=== PATIENT | female | born 1965 | race Asian ===

== ENCOUNTER 2020-05-05 16:38 | Inpatient (IN) | payer OTHER, SELFPAY ==
[~2020-05-05] VITALS: Ht 149.9 cm; Wt 74.4 kg
[2020-05-05 16:48] VITALS: BP 176/86
--- NOTE | 2020-05-05 16:56 | NUR ---
Donell-- pts . Call for updates [phone]
--- NOTE | 2020-05-05 16:56 | NUR ---
Patient wheelchair assisted to bed 09
[2020-05-05] MEDS ORDERED: AZITHROMYCIN 500 MG in DEXTROSE 5% 250 ML IV ONE (17:50)
[2020-05-05] MEDS ORDERED: DEXAMETHASONE 10 MG/ML VIAL IVP ONE (17:50)
[2020-05-05 17:56] LABS: BASOPHILS % (AUTO) 0.2 % (0.0-2.0); EOSINOPHILS % (AUTO) 0.1 % (0.0-4.0); HEMATOCRIT 41.7 % (36-48); HEMOGLOBIN 13.9 g/dL (12.0-16.0); LYMPHOCYTES # (AUTO) 0.6 K/uL (2.5-16.5); LYMPHOCYTES % (AUTO) 7.3 % (20.5-51.1); MEAN CORPUSCULAR HEMOGLOBIN 26 pg (27-31); MEAN CORPUSCULAR HGB CONC 33 g/dL (33-37); MEAN CORPUSCULAR VOLUME 78.1 fL (80-94); MONOCYTES # (AUTO) 0.6 K/uL (0.8-1.0); MONOCYTES % (AUTO) 7.5 % (1.7-9.3); NEUTROPHILS # (AUTO) 7.2 K/uL (1.8-7.7); NEUTROPHILS % (AUTO) 84.9 % (42.2-75.2); PLATELET COUNT (AUTO) 279 K/uL (140-450); RED BLOOD CELL COUNT(AUTO) 5.35 MIL/uL (4.20-5.40); RED CELL DISTRIBUTION WIDTH 14.2 % (11.6-13.7); WHITE BLOOD COUNT (AUTO) 8.5 K/uL (4.8-10.8)
[2020-05-05 18:17] LABS: PROTHROMBIN TIME 9.5 secs (10.8-13.4)
[2020-05-05 18:19] LABS: ALBUMIN 3.4 g/dL (3.4-5.0); ANION GAP 10.2 (8-16); CARBON DIOXIDE 30.1 mmol/L (21-32); CREATININE 0.7 mg/dL (0.6-1.3); POTASSIUM 3.3 mmol/L (3.5-5.1); TOTAL BILIRUBIN 0.3 mg/dL (0.0-1.0)
[2020-05-05 19:03] LABS: C-REACTIVE PROTEIN QUANT 3.5 mg/dL (0.0-0.9)
[2020-05-05 19:08] LABS: LACTATE DEHYDROGENASE 302 U/L (81-234)
--- NOTE | 2020-05-05 19:25 | NUR ---
PATIENT GIVEN BEDSIDE COMODE TO PROVIDE UA.
--- NOTE | 2020-05-05 19:30 | NUR ---
PT 55 Y/O FEMALE BIB SELF FROM HOME FOR C/O SOB AND COUGH X 1 WEEK. PT A &O X 4. PER PATIENT, "I GOT EXPOSED TO BY MY COUSIN 2 WEEKS AGO AND WE LATER FOUND OUT HE WAS POSITIVE." PT RESPIRATIONS ARE EVEN AND UNLABORED. CRACKLES NOTED A/P BIALT. O2SAT INCREASED TO 94% ON 2L NC. PT SKIN IS WARM AND DRY TO TOUCH. PT REMAINS ON ACCOUNTS PAYABLE PROCESSOR. DENIES PAIN AT THIS TIME. PT ADMITS TO HTN HX BUT DOES NOT TAKE MEDICATION FOR HTN. MEDHX: ASTHMA, HTN. ALLERGIES: NKA
[2020-05-05] MEDS ORDERED: cefTRIAXone 1,000 MG VIAL ONE (20:22)
[2020-05-05] MEDS ORDERED: DEXAMETHASONE 10 MG/ML VIAL ONE (20:23)
[2020-05-05] MEDS ORDERED: HYDROcodone/APAP 5/325 MG 1 TAB TAB PO PRN (20:40)
[2020-05-05] MEDS: AZITHROMYCIN 500 MG in DEXTROSE 5% 250 ML IV SCH (20:40)
[2020-05-05] MEDS ORDERED: ACETAMINOPHEN 325 MG TAB PO PRN (20:40)
[2020-05-05] MEDS ORDERED: ZOLPIDEM 5 MG TAB PO PRN (20:40)
[2020-05-05] MEDS ORDERED: METOCLOPRAMIDE 10 MG/2 ML INJ VIAL IVP PRN (20:40)
[2020-05-05] MEDS ORDERED: AZITHROMYCIN 500 MG INJ VIAL IV ONE (22:11)
--- NOTE | 2020-05-05 23:00 | NUR ---
PT RESPONSIVE TO VERBAL STIMULI. PT RESTING IN BED COMFORTABLLY, AND STATES ALL NEEDS MET AT THIS TIME. BEDSIDE COMODE LEFT AT BEDSIDE. PT REMAINS ON PRINCIPAL TRAINER. PT VSS. PT O2SAT@ 93% ON 2L NC. PT DENIES ANY CHEST PAIN OR SOB AT THIS TIME. BED IS LOCKED AND IN LOWEST POSITION.
[2020-05-06 00:12] LABS: APPEARANCE,URINE CLEAR (CLEAR); BILIRUBIN,URINE NEGATIVE (NEGATIVE); BLOOD, URINE NEGATIVE (NEGATIVE); COLOR,URINE YELLOW (YELLOW); LEUKOCYTE ESTERASE ,URINE NEGATIVE (NEGATIVE); NITRITE, URINE NEGATIVE (NEGATIVE); UGLUCOSE NEGATIVE (NEGATIVE)
[2020-05-06] MEDS: ALBUTEROL SULFATE/IPRATROPIU 3 ML SOL IH SCH ×4 (01:00→19:00)
--- NOTE | 2020-05-06 03:00 | NUR ---
PT RESPONSIVE TO VERBAL STIMULI. PT GIVEN BLACKET FOR COMFORT MEASURES. BEDSIDE COMODE LEFT AT BEDSIDE AND PATIENT ASSISTED TO BEDSIDE COMODE TO URINATE. PT REMAINS ON NURSING SCHEDULER. PT VSS. PT O2SAT@ 96% ON 2L NC. PT DENIES ANY CHEST PAIN OR SOB AT THIS TIME. BED IS LOCKED AND IN LOWEST POSITION. SIDERAIL UP X 1 FOR SAFETY.
--- NOTE | 2020-05-06 05:00 | NUR ---
[facility] SWAB COLLECTED AND SENT TO LAB.
--- NOTE | 2020-05-06 05:29 | NUR ---
PAIENT GIVEN PILLOW FOR COMFORT MEASURES. PT GIVEN EXRTA BLANKET FOR COMFORT MEASURES. PT GIVEN WATER FOR COMFROT MEASURES. PT RESTING IN BED WITH INDUSTRIAL RELATIONS REPRESENTATIVE IN PLACE. PT ABLE TO REPOSITION SELF. PT DENIES ANY PAIN OR CHEST DISCOMFORT AT THIS TIME. NO SOB NOTED AT THIS TIME. PT REMAINS ON INDUSTRIAL RELATIONS REPRESENTATIVE. VSS AT TIME TIME.
--- NOTE | 2020-05-06 06:09 | NUR ---
PATIENT GIVEN FOOD TOLERATED AND WATER. PT RESTING IN BED WITH EYES OPEN AND RESPOSNSIVE TO VERBAL STIMULI. PT REMAINS ON IRRIGATION SYSTEM INSTALLER AND ALL VSS. PT DENIES PAIN AT THIS TIME. BED IS LOCKED AND IN LOEST POSITON.
[2020-05-06] MEDS ORDERED: MONT10TA35 PO (06:10)
[2020-05-06] MEDS ORDERED: SUD30 PO (06:10)
[2020-05-06] MEDS: BUDESONIDE 0.5 MG/2 ML NEBU INH SCH (07:34)
--- NOTE | 2020-05-06 07:55 | NUR ---
PT IS RESTING IN BED AT THIS TIME, VSS, RESP EVEN AND UNLABORED, ALL NEEDS MET AT THIS TIME
[2020-05-06 08:22] LABS: BASOPHILS % (AUTO) 0.4 % (0.0-2.0); HEMATOCRIT 41.7 % (36-48); HEMOGLOBIN 13.9 g/dL (12.0-16.0); LYMPHOCYTES # (AUTO) 1.3 K/uL (2.5-16.5); LYMPHOCYTES % (AUTO) 30.1 % (20.5-51.1); MEAN CORPUSCULAR HEMOGLOBIN 26 pg (27-31); MEAN CORPUSCULAR HGB CONC 33 g/dL (33-37); MEAN CORPUSCULAR VOLUME 78.2 fL (80-94); MONOCYTES # (AUTO) 0.3 K/uL (0.8-1.0); MONOCYTES % (AUTO) 7.4 % (1.7-9.3); NEUTROPHILS # (AUTO) 2.6 K/uL (1.8-7.7); NEUTROPHILS % (AUTO) 62.1 % (42.2-75.2); PLATELET COUNT (AUTO) 280 K/uL (140-450); RED BLOOD CELL COUNT(AUTO) 5.33 MIL/uL (4.20-5.40); RED CELL DISTRIBUTION WIDTH 14.1 % (11.6-13.7); WHITE BLOOD COUNT (AUTO) 4.2 K/uL (4.8-10.8)
[2020-05-06 08:46] LABS: ALBUMIN 3.4 g/dL (3.4-5.0); ANION GAP 14.6 (8-16); CARBON DIOXIDE 27.2 mmol/L (21-32); CHOL/HDL RATIO 4.4 (1-4.5); CREATININE 0.7 mg/dL (0.6-1.3); POTASSIUM 3.8 mmol/L (3.5-5.1); TOTAL BILIRUBIN 0.3 mg/dL (0.0-1.0)
[2020-05-06] MEDS ORDERED: DEXAMETHASONE 4 MG/ML VIAL IVP ONE (09:00)
--- NOTE | 2020-05-06 11:29 | NUR ---
MRSA SWAB COLLECTED AT THIS TIME
--- NOTE | 2020-05-06 12:07 | NUR ---
Patient will be admitted to care of MEGH[facility]. Admited to MED SURG. Will go to room 117. Belongings list completed. Report to DESHAWN TAVAREZ.
[2020-05-06 12:10] VITALS: BP 146/77
--- NOTE | 2020-05-06 12:10 | NUR ---
RECEIVED PATIENT FROM ED NURSE, DAYSI PARR. PATIENT AWAKE, ALERT AND ORIENTED X4. RESP EVEN AND UNLABORED ON NONREBREATHER 10L, O2SAT 95%. DENIED OF PAIN AT THIS TIME. LUNGS CLEAR. SKIN WARM TO TOUCH AND INTACT. MRSA COLLECTED IN ED. DROPLET PRECAUTION OBSERVED. LAC 20G INTACT AND PATENT. PATIENT ABLE TO MAKE NEEDS KNOWN AND FOLLOW COMMANDS. NO ACUTE S/S DISTRESS AT THIS TIME. CALL LIGHT WITHIN REACH. WILL CONTINUE TO MONITOR.
--- NOTE | 2020-05-06 14:25 | NUR ---
PATIENT SITTING UP IN BED COMFORTABLE USING HER CELL PHONE. RESP EVEN AND UNLABORED ON 15L NONREBREATHER. DENIED OF PAIN AND NO ACUTE S/S DISTRESS. PERSONAL CARE RENDERED. PATIENT AMBULATED TO THE BATHROOM WITH STANDBY ASSIST, WITH STEADY SLOW GAIT. PATIENT STATED SHE WAS FEELING DIZZY EARLIER TODAY WHEN AMBULATING. FALL PRECAUTION PUT IN PLACE. PATIENT ENCOURAGED TO USE CALL LIGHT WHEN NEED TO GET OUT OF BED. PATIENT VERBALIZED UNDERSTANDING. CALL LIGHT WITHIN REACH. WILL CONTINUE TO MONITOR.
[2020-05-06 16:00] VITALS: BP 156/88
--- NOTE | 2020-05-06 16:35 | NUR ---
PATIENT AMBULATED TO THE BATHROOM WITH SLOW STEADY GAIT WITH STANDBY ASSIST. C/O SOB DURING AMBULATION BUT O2SAT MAINTAINED 93%. PATIENT DENIED PAIN AT THIS TIME. ALERT AND AWAKE. ABLE TO MAKE NEEDS KNOWN. CALL LIGHT WITHIN REACH. WILL CONTINUE TO MONITOR.
[2020-05-06] MEDS ORDERED: remdesivir COMMUNICATION ORDER 1 EA MISC MC PRN (17:05)
[2020-05-06] MEDS ORDERED: MONTELUKAST SODIUM 10 MG TAB PO SCH (17:15)
[2020-05-06 17:34] LABS: ALBUMIN 3.6 g/dL (3.4-5.0); BILIRUBIN,DIRECT 0.1 mg/dL (0.0-0.3); TOTAL BILIRUBIN 0.4 mg/dL (0.0-1.0)
--- NOTE | 2020-05-06 18:35 | NUR ---
ASSISTED PATIENT GETTING OUT OF BED AND AMBULATING TO THE BATHROOM. PATIENT TOLERATED WELL. DENIED OF PAIN. CALL LIGHT WITHIN REACH. WILL CONTINUE TO MONITOR.
--- NOTE | 2020-05-06 19:35 | NUR ---
ENDORSED PATIENT TO NIGHT NURSE. PATIENT IN STABLE CONDITION.
--- NOTE | 2020-05-06 20:10 | NUR ---
RECEIVED REPORT OF PT IN STABLE CONDITION.RESP.UNLABOLED W/O2 VIA NRB MASK.SL PATENT.LUNGS DIMINISHED.CALL LIGHT IN REACH.WILL MONITOR CLOSELY.
[2020-05-06] MEDS ORDERED: cefTRIAXone 1,000 MG VIAL ONE (20:26)
[2020-05-06] MEDS ORDERED: AZITHROMYCIN 500 MG INJ VIAL IV ONE (20:27)
[2020-05-06] MEDS: AZITHROMYCIN 500 MG in DEXTROSE 5% 250 ML IV SCH (21:52)
[2020-05-07] VITALS: BP 168/77
--- NOTE | 2020-05-07 | NUR ---
FREQUENT ROUND DONE.NO DISTRESS NOTED.
--- NOTE | 2020-05-07 06:27 | NUR ---
ASSISST TO GO TO BR.HAS GEN.WEAKNESS.NO PRES.DISTRESS NOTED.
--- NOTE | 2020-05-07 07:20 | NUR ---
PATIENT HAS BEEN SCREENED AND CATEGORIZED MODERATE NUTRITION RISK. PATIENT WILL BE SEEN WITHIN 3-5 DAYS OF ADMISSION. 05/08/20-05/10/20 HARLEY WEINER MS, RDN
--- NOTE | 2020-05-07 07:30 | NUR ---
RECEIVED REPORT FROM NIGHT NURSE PATIENT IS AAOX4 ON 10LPM NON REBREATHER MASK, ON REGULAR DIET, SKIN INTACT, AMBULATORY BUT WITH DIZZINESS, IV INTACT AND PATENT ON LEFT AC SALINE LOCK. CONSENT FOR PLASMA TAKEN. SAFETY MEASURES IN PLACE AND CALL LIGHT WITHIN REACH. WILL CONTINUE TO MONITOR.
[2020-05-07 08:00] VITALS: BP 155/85
[2020-05-07] MEDS: MONTELUKAST SODIUM 10 MG TAB PO SCH (08:27)
[2020-05-07] MEDS: DEXAMETHASONE 4 MG/ML VIAL IM SCH (08:28)
--- NOTE | 2020-05-07 08:34 | NUR ---
MEDICATION DUE GIVEN AND CHECK PATIENTS VITAL SIGNS PRIOR TO MEDICATION. BP 155/85 [place] 64.
[2020-05-07] MEDS ORDERED: remdesivir COMMUNICATION ORDER 1 EA MISC MC PRN (09:00)
[2020-05-07 09:40] LABS: BASOPHILS % (AUTO) 0.2 % (0.0-2.0); HEMOGLOBIN 13.8 g/dL (12.0-16.0); LYMPHOCYTES # (AUTO) 1.9 K/uL (2.5-16.5); LYMPHOCYTES % (AUTO) 14.1 % (20.5-51.1); MEAN CORPUSCULAR HEMOGLOBIN 26 pg (27-31); MEAN CORPUSCULAR HGB CONC 33 g/dL (33-37); MEAN CORPUSCULAR VOLUME 78.4 fL (80-94); MONOCYTES # (AUTO) 1.2 K/uL (0.8-1.0); MONOCYTES % (AUTO) 8.9 % (1.7-9.3); NEUTROPHILS # (AUTO) 10.1 K/uL (1.8-7.7); NEUTROPHILS % (AUTO) 76.8 % (42.2-75.2); PLATELET COUNT (AUTO) 321 K/uL (140-450); RED BLOOD CELL COUNT(AUTO) 5.35 MIL/uL (4.20-5.40); RED CELL DISTRIBUTION WIDTH 14.2 % (11.6-13.7); WHITE BLOOD COUNT (AUTO) 13.2 K/uL (4.8-10.8)
--- NOTE | 2020-05-07 10:00 | NUR ---
MADE ROUNDS PATIENT IS SITTING NO DISTRESS NOTED
[2020-05-07 10:30] LABS: ALBUMIN 3.1 g/dL (3.4-5.0); ANION GAP 12.6 (8-16); CARBON DIOXIDE 28.7 mmol/L (21-32); CREATININE 0.7 mg/dL (0.6-1.3); POTASSIUM 3.3 mmol/L (3.5-5.1); TOTAL BILIRUBIN 0.4 mg/dL (0.0-1.0)
[2020-05-07 10:33] LABS: ALBUMIN 3.2 g/dL (3.4-5.0); BILIRUBIN,DIRECT 0.1 mg/dL (0.0-0.3); TOTAL BILIRUBIN 0.4 mg/dL (0.0-1.0)
[2020-05-07] MEDS ORDERED: POTASSIUM CHLORIDE 10 MEQ TABER PO SCH (12:00)
--- NOTE | 2020-05-07 12:00 | NUR ---
PATIENT POTASSIUM LEVEL 3.3 GAVE K DUR 40 MEQ PO PER DOCTOR SOPHIA MOORE
[2020-05-07] MEDS ORDERED: remdesivir CLINICAL MONITORING 1 EA MISC MC PRN (14:20)
[2020-05-07 16:00] VITALS: BP 143/80
[2020-05-07] MEDS ORDERED: REMDESIVIR (EUA) 200 MG in NACL 0.9% 100 ML IV SCH (16:00)
--- NOTE | 2020-05-07 16:00 | NUR ---
MEDICATION DUE GIVEN NO DISTRESS NOTED
--- NOTE | 2020-05-07 19:21 | NUR ---
Patient's Plan of Care was discussed and reviewed with MANAGER HOUSEKEEPING: EULOGIO LOYA
--- NOTE | 2020-05-07 19:21 | NUR ---
ENDORSED TO NIGHT NURSE FOR CONTINUITY OF CARE. PT IS STABLE
--- NOTE | 2020-05-07 19:22 | NUR ---
RECD. RESTING IN BED, AWAKE, A/OX4. RESPIRATION EVEN AND UNLABORED. ON 02 AT 20 LITERS NON-REBREATHER MASK. 02 SAT - 96%. IV OF NS AT TKO INFUSING LEFT AC G20. ABLE TO AMBULATE TO THE BR, WITH SOB ON EXERTION. PLAN OF CARE FOR THE SHIFT DISCUSSED BY ROBERTO TAVAREZ TO THE PATIENT. VERBALIZED UNDERSTANDING. DENIES PAIN 0/10.
[2020-05-07 20:00] VITALS: BP 159/78
--- NOTE | 2020-05-07 22:00 | NUR ---
RESTING IN BED, SNACK GIVEN. NO SOB NOTED.
--- NOTE | 2020-05-08 | NUR ---
SLEEPING COMFORTABLY IN BED.
--- NOTE | 2020-05-08 01:30 | NUR ---
INFORMED THAT PLASMA WILL BE INFUSED TONIGHT. AGREED, VERBALIZED UNDERSTANDING.
--- NOTE | 2020-05-08 02:15 | NUR ---
FOLLOW UP WITH LAB REGARDING PLASMA, WILL CHECK ON IT.
--- NOTE | 2020-05-08 02:50 | NUR ---
FOLLOW UP [facility] REGARDING PLASMA, WILL THAW AND NURSE NEED TO CALL AFTER ONE HOUR.
[2020-05-08 04:00] VITALS: BP 153/94
--- NOTE | 2020-05-08 04:00 | NUR ---
IV INFILTRATED, WILL INSERT NEW IV LINE.
--- NOTE | 2020-05-08 06:00 | NUR ---
RECHECKED IV LINE, STILL GOOD. CONVALESCENT PLASMA STARTED.
--- NOTE | 2020-05-08 06:45 | NUR ---
CONVALESCENT PLASMA INFUSION FINISHED, NO S/S OF ALLERGIC REACTION NOTED.
[2020-05-08] MEDS: ALBUTEROL SULFATE/IPRATROPIU 3 ML SOL IH SCH ×2 (07:00→13:00)
--- NOTE | 2020-05-08 07:20 | NUR ---
ENDORSED TO AM SHIFT NURSE FOR CONTINUITY OF CARE.
[2020-05-08] MEDS: BUDESONIDE 0.5 MG/2 ML NEBU INH SCH (07:30)
[2020-05-08 08:00] VITALS: BP 150/61
[2020-05-08 08:58] LABS: BASOPHILS % (AUTO) 0.2 % (0.0-2.0); EOSINOPHILS % (AUTO) 0.1 % (0.0-4.0); HEMATOCRIT 38.1 % (36-48); HEMOGLOBIN 12.5 g/dL (12.0-16.0); LYMPHOCYTES # (AUTO) 1.9 K/uL (2.5-16.5); LYMPHOCYTES % (AUTO) 12.7 % (20.5-51.1); MEAN CORPUSCULAR HEMOGLOBIN 26 pg (27-31); MEAN CORPUSCULAR HGB CONC 33 g/dL (33-37); MEAN CORPUSCULAR VOLUME 78.2 fL (80-94); MONOCYTES # (AUTO) 1.4 K/uL (0.8-1.0); MONOCYTES % (AUTO) 9.2 % (1.7-9.3); NEUTROPHILS # (AUTO) 11.5 K/uL (1.8-7.7); NEUTROPHILS % (AUTO) 77.8 % (42.2-75.2); PLATELET COUNT (AUTO) 343 K/uL (140-450); RED BLOOD CELL COUNT(AUTO) 4.87 MIL/uL (4.20-5.40); RED CELL DISTRIBUTION WIDTH 14.2 % (11.6-13.7); WHITE BLOOD COUNT (AUTO) 14.8 K/uL (4.8-10.8)
[2020-05-08] MEDS: MONTELUKAST SODIUM 10 MG TAB PO SCH (09:15)
[2020-05-08] MEDS: DEXAMETHASONE 4 MG/ML VIAL IM SCH (09:15)
--- NOTE | 2020-05-08 09:34 | NUR ---
PT IS RESTING IN BED WITH HOB ELEVATED ON 13L NRB PT AAOX4 CALL LIGHT WITHIN REACH. TOLERATED PO MEDICATION WITH NO ISSUES RECEIVING IVF TO LEFT AC WITH NO ISSUES SKIN INTACT LUNG SOUNDS DIMINISHED ABD IS SOFT NONTENDER WITH ACTIVE BS X 4 LBM THIS MORNING. PT ENCOURAGED TO TRY TO EAT. ALL NEEDS MET AT THIS TIME WILL CONTINUE WITH POC.
--- NOTE | 2020-05-08 09:46 | NUR ---
BREATHING TXS NOT GIVEN DUE TO RESPIRATORY PROTOCOL FOR COVID POSITIVE PTS.
[2020-05-08 10:11] LABS: ALBUMIN 3.2 g/dL (3.4-5.0); ANION GAP 12.8 (8-16); CARBON DIOXIDE 26.8 mmol/L (21-32); CREATININE 0.5 mg/dL (0.6-1.3); POTASSIUM 3.6 mmol/L (3.5-5.1); TOTAL BILIRUBIN 0.5 mg/dL (0.0-1.0)
--- NOTE | 2020-05-08 11:00 | NUR ---
PT SITING UP NEXT TO BED IN NO DISTRESS. REMAINS ON O2 SUPPLEMENT
--- NOTE | 2020-05-08 12:31 | NUR ---
PT RESTING IN BED WITH EYES CLOSED, 10L NRB MASK ALL NEEDS MET. CALL LIGHT WITHIN REACH.
--- NOTE | 2020-05-08 14:28 | NUR ---
RESTING IN BED, ALL NEEDS MET.
[2020-05-08 16:00] VITALS: BP 129/60
[2020-05-08] MEDS: REMDESIVIR (EUA) 100 MG in NACL 0.9% 100 ML IV SCH (17:03)
--- NOTE | 2020-05-08 18:48 | NUR ---
AMBULATED TO RESTROOM WITH NO ISSUES CALL LIGHT WITHIN REACH.
--- NOTE | 2020-05-08 19:20 | NUR ---
ENDORSED TO PM RN FOR CONTINUITY OF CARE, PT IS ON 13L NRB SITTING UP SIDE OF BED. IN NO DISTRESS.
--- NOTE | 2020-05-08 19:25 | NUR ---
RECEIVED BEDSIDE REPORT FROM DAY SHIFT NURSE FOR CONTINUITY OF CARE. PT IS AWAKE AND ALERT, A&OX4. SPEAKING APPROPRIATELY. ON 13L O2 NRB WITH O2 SAT AT 90%. BREATHING IS UNLABORED. PT IS AMBULATORY, INDEPENDENTLY PER DAY SHIFT NURSE. SKIN IS WARM, DRY, AND INTACT. BM TODAY PER DAY SHIFT NURSE. IV IS IN THE LEFT AC 20 GAUGE SALINE LOCKED. PLAN OF CARE DISCUSSED. DROPLET PRECAUTIONS IN PLACE FOR RAPID EARLE POSITIVE, PCR PENDING. PT IS STABLE AT THIS TIME.
[2020-05-08 20:00] VITALS: BP 135/70
--- NOTE | 2020-05-08 21:30 | NUR ---
PT IS AWAKE AND ALERT. SITTING UPRIGHT IN HIGH FOWLERS POSITION. NO RESPIRATORY DISTRESS NOTED. O2 SAT IS 93% ON 13L O2 NRB. PT IS NOT COUGHING AT THIS TIME. BELONGINGS WITHIN REACH AT BEDSIDE. PT IS STABLE.
--- NOTE | 2020-05-08 23:30 | NUR ---
ROUNDED ON PT. SHE IS SLEEPING IN SEMI FOWLERS POSITION. PT IS ON 13L O2 NRB. NO RESPIRATORY DISTRESS NOTED. NO COUGHING OR SOB. BED IS IN THE LOWEST POSITION AND PT IS STABLE AT THIS TIME.
--- NOTE | 2020-05-09 01:30 | NUR ---
CHECKED ON PT. SHE IS SLEEPING WITH NO DISTRESS. NO COUGHING OR SOB. BREATHING IS UNLABORED. CHEST RISE AND FALL IS SYMMETRICAL. BELONGINGS ARE WITHIN REACH. PT IS STABLE.
--- NOTE | 2020-05-09 03:30 | NUR ---
PT IS SLEEPING IN BED. NO SOB OR RESPIRATORY DISTRESS NOTED. PT IS ON 13L O2 NRB. IV IS SALINE LOCKED. PT IS STABLE.
[2020-05-09 04:00] VITALS: BP 127/46
--- NOTE | 2020-05-09 07:20 | NUR ---
ENDORSED PT TO DAY SHIFT NURSE FOR CONTINUITY OF CARE. PT IS STABLE AT THIS TIME. PLAN OF CARE DISCUSSED.
--- NOTE | 2020-05-09 07:25 | NUR ---
NURSE REPORT AND ASSESSMENT Report obtained from Jojo Lindsey and this nurse assumed care of patient until 1930. Received patient awake at beginning of dayshift. VSS. Afeb. No c/o pain or discomfort. Breakfast taken 60%, since need O2 at 13 l/min NRM. .
[2020-05-09 08:35] LABS: BASOPHILS % (AUTO) 0.1 % (0.0-2.0); EOSINOPHILS % (AUTO) 0.1 % (0.0-4.0); HEMATOCRIT 38.2 % (36-48); HEMOGLOBIN 12.6 g/dL (12.0-16.0); LYMPHOCYTES # (AUTO) 1.8 K/uL (2.5-16.5); LYMPHOCYTES % (AUTO) 12.9 % (20.5-51.1); MEAN CORPUSCULAR HEMOGLOBIN 26 pg (27-31); MEAN CORPUSCULAR HGB CONC 33 g/dL (33-37); MEAN CORPUSCULAR VOLUME 78.1 fL (80-94); MONOCYTES # (AUTO) 1.3 K/uL (0.8-1.0); MONOCYTES % (AUTO) 9.3 % (1.7-9.3); NEUTROPHILS # (AUTO) 10.6 K/uL (1.8-7.7); NEUTROPHILS % (AUTO) 77.6 % (42.2-75.2); PLATELET COUNT (AUTO) 392 K/uL (140-450); RED BLOOD CELL COUNT(AUTO) 4.89 MIL/uL (4.20-5.40); RED CELL DISTRIBUTION WIDTH 13.9 % (11.6-13.7); WHITE BLOOD COUNT (AUTO) 13.7 K/uL (4.8-10.8)
[2020-05-09 08:40] LABS: ANION GAP 12.4 (8-16); CARBON DIOXIDE 27.3 mmol/L (21-32); CREATININE 0.6 mg/dL (0.6-1.3); POTASSIUM 3.7 mmol/L (3.5-5.1); TOTAL BILIRUBIN 0.7 mg/dL (0.0-1.0)
[2020-05-09] MEDS: DEXAMETHASONE 4 MG/ML VIAL IM SCH (08:48)
[2020-05-09] MEDS: MONTELUKAST SODIUM 10 MG TAB PO SCH (08:48)
--- NOTE | 2020-05-09 15:28 | NUR ---
DC [age] YRS OLD FEMALE PATIENT WAS ADMITTED FROM HOME WITH A DX OF COVID. PT HAS A HX OF HTN, DM AND HLD. CXR SHOWED BILATERAL INFILTRATES AND CARDIOMEGALY . RAPID AND PCR COVID TEST POSITIVE. STARTED COVID PROTOCOL REMDESIVIR IV ROCEPHIN AND AZITHROMYCIN. CURRENTLY ON 13L NON REBREATHER SATING 94% .CONSULTED WITH ID AND PULMO. DC PLAN TO GO HOME WHEN STABLE CM TO FOLLOW Addendum: 05/13/20 at 1320 by Isabelle Hicks RECEIVED AN ORDER FOR HOME O2. ORDER SENT TO [facility] AFTER HOURS [phone] AND [facility] [phone]. WILL FOLLOW UP. CONTACTED [facility] AT [phone], ABLE TO SPEAK TO BALDOMERO. PER BALDOMERO SHE WILL HAVE THE USED CAR RENOVATOR CALL ME BACK WITHIN 30 MINS AND IF I DO NOT RECEIVE A CALL, TO CALL THEM BACK AGAIN AND INFORM THEM THAT IT'S THE 2ND CALL. WILL FOLLOW UP. Addendum: 05/13/20 at 1844 by Isabelle Hicks CM LATE ENTRY: CONTACTED [facility] USED CAR RENOVATOR NUMBER AGAIN, ADVISED ME TO CALL [phone]. CONTACTED THE PROVIDED NUMBER, ABLE TO SPEAK TO DESIREE. PER DESIREE WILL HAVE THE USED CAR RENOVATOR CM CALL ME BACK IN A FEW. RECEIVED A CALL BACK FROM TANYA USED CAR RENOVATOR FOR [facility]. SHE STATED SHE WILL FORWARD THE REQUEST TO [facility] AND WILL FOLLOW UP WITH THEM. CONTACTED [facility] AGAIN AT [phone] TO FOLLOW UP. PER TANYA SHE DID NOT HEAR BACK FROM [facility]. I ASKED HER FOR THE NUMBER TO CALL SO I CAN FOLLOW UP WELL. SHE PROVIDED ME WITH [facility] (BEER COIL CLEANER AT [facility]) NUMBER [phone], NO ANSWER. LEFT MESSAGE. CONTACTED [facility] AGAIN, SHE STATED SHE WILL FOLLOW UP. CONTACTED KAIDEN OF [facility] AT [phone] TO ASK FOR HELP. PER KAIDEN, SHE WILL FIND OUT WHAT GOING ON THE REQUEST. PER KAIDEN NOTHING NOTED ON THEIR END, JUST THE PATIENT'S INFO. INFORMED HER THAT I FAXED THE REQUEST EARLIER AND [facility] IS SUPPOSED TO FOLLOW UP WITH FLAKO HOWEVER [facility] HAVE HEARD BACK FROM HIM. I ALSO INFORMED KAIDEN THAT I CALLED AND LEFT A MESSAGE TO [facility]LAKO. SHE STATED IF I HAVE THE AUTH FROM [facility] SHE CAN HAVE HER BLOOD BANK BUSINESS MANAGER FOLLOW UP ON IT. REACHED OUT TO [facility] FOR AUTH, SHE PROVIDED ME WITH [phone]. PROVIDED IT TO KAIDEN. PER KAIDEN SHE WILL PROVIDE IT TO HER BLOOD BANK BUSINESS MANAGER TO FOLLOW UP. SHE STATED BUT COULD NOT GUARANTEE THAT IT WILL BE DELIVERED TODAY. PROVIDED HER OF THE SIX PACK LOADER OPERATOR'S NUMBER AND THE UNIT'S NUMBER. WILL FOLLOW UP. Addendum: 05/14/20 at 0841 by Isabelle Hicks CM RECEIVED A VOICE MESSAGE FROM [facility], STATING THAT THEY ARE NOT ABLE TO PROCESS THE REQUEST DUE TO COVID CRISIS AND THE INCREASE IN 02 DEMAND AND IS LOW ON INVENTORY. CONTACTED [phone], ABLE TO SPEAK TO MARY. PER MARY NOTHING DOCUMENTED EXCEPT EXCEPT FOR THE REASONING SHE PROVIDED ME. WILL FOLLOW UP. CONTACTED [facility] AT [phone], NO ANSWER. LEFT MESSAGE. WILL FOLLOW UP. CONTACTED [facility], NO ANSWER. LEFT MESSAGE. WILL FOLLOW UP. Addendum: 05/14/20 at 0928 by Isabelle Hicks CM RECEIVED A CALL BACK FROM B[facility] OF [facility] AFTER HOURS, STATING THAT [facility] SHOULD HAVE ENOUGH O2 SINCE THEY HAVE AN EXCLUSIVE CONTRACT WITH [facility]. REACHED OUT TO KAIDEN AGAIN, NO ANSWER. LEFT MESSAGE. WILL FOLLOW UP. Addendum: 05/14/20 at 1115 by Isabelle Hicks CM LATE ENTRY: REACHED OUT TO KAIDEN AGAIN FOR THE 3RD TIME, NO ANSWER. LEFT MESSAGE. CONTACTED [facility] AFTER HOURS AT [phone], ABLE TO SPEAK TO LILLIE. INFORMED HER WHAT [email or web address] TOLD ME. SHE STATED DUE TO CURRENT COVID CRISIS THERE INVENTORY IS LOW AND THEY ARE NOT JUST SERVICING [email or web address]. SHE STATED SHE WILL SEND IT THE [employer] DEPARTMENT AND SOMEONE WILL BE CONTACTING ME. SHE ALSO STATED THAT SHE DON'T KNOW WHEN THAT CALL WILL HAPPEN, BUT SOMEONE WILL CALL ME FOR SURE. PROVIDED HER OF MY CONTACT INFO. RECEIVED A CALL BACK FROM [facility], STATING THAT SHE WAS NOT ABLE TO ANSWER MY CALLS BECAUSE SHE IS WORKING ON THIS. SHE STATED SHE TRIED CALLING THE NUMBER ON THE FACE SHEET BUT THE NUMBER HAVE BEEN DISCONNECTED AND THE OTHER NUMBER IS A WORK PHONE NUMBER, WILL FOLLOW UP. Addendum: 05/14/20 at 1126 by Isabelle Hicks CM GOT THE PHONE NUMBER FOR THE PATIENT'S SARITA FROM [facility] RN, CP [phone], HOME PHONE [phone]. ALL PHONE NUMBERS PROVIDED TO [facility]. PER KAIDEN, THEY DO NOT HAVE AN ETA YET BUT WORKING ON IT. WILL FOLLOW UP. Addendum: 05/14/20 at 1500 by Isabelle Hicks PER [facility], THEIR POWER SYSTEM ELECTRICAL ENGINEER IS EN ROUTE TO DELIVERY O2. CONTACTED PATIENT'S SARITA LOCKE AT [phone] AND CONFIRMED THAT O2 JUST GOT DELIVERED. CHARGE NURSE JESSICA AND DR. DIANE MADE AWARE.
--- NOTE | 2020-05-09 15:35 | NUR ---
05/09/20 RD INITIAL ASSESSMENT COMPLETED PLEASE REFER TO NUTRITION ASSESSMENT UNDER CARE ACTIVITY FOR ESTIMATED NUTRITIONAL NEEDS. 1. CONTINUE REGULAR DIET TOLERATED 2. RECOMMEND ENSURE BID 3. ENCOURAGE PO INTAKE >75% 4. RD TO FOLLOW-UP 3-5 DAYS, MODERATE RISK ANABEL DARLING, RD
[2020-05-09 16:00] VITALS: BP 93/50
[2020-05-09 16:05] VITALS: BP 100/55
[2020-05-09] MEDS: REMDESIVIR (EUA) 100 MG in NACL 0.9% 100 ML IV SCH (17:00)
--- NOTE | 2020-05-09 19:15 | NUR ---
ENDORSEMENT AND NURSE REPORT REPORT GIVEN TO NIGHT NURSE DEONTE TO ASSUME CONTINUITY OF CARE. PATIENT IN STABLE CONDITION. HAD RECEIVED IVPB REMDESIVIR AND SL IN LEFT AC FLUSHED WITH NS. NO REDNESS OR SWELLING NOTED. O2 13 L/MIN NRM.
--- NOTE | 2020-05-09 19:15 | NUR ---
RECEIVED BEDSIDE REPORT FROM DAY SHIFT NURSE FOR CONTINUITY OF CARE. PT IS AWAKE AND ALERT, A&OX4. ON 13L NRB WITH BREATHING UNLABORED. NO RESPIRATORY DISTRESS NOTED. PT IS AMBULATORY INDEPENDENTLY. SKIN IS WARM, DRY, AND INTACT. BELONGINGS ARE WITHIN REACH. COVID POSITIVE WITH DROPLET PRECAUTIONS IN PLACE. IV IS IN THE LEFT AC 20 GAUGE SALINE LOCKED. PLAN OF CARE DISCUSSED.
[2020-05-09 20:00] VITALS: BP 138/51
--- NOTE | 2020-05-09 21:00 | NUR ---
PT IS AWAKE AND SITTING UP IN BED. PT IS ON CELL PHONE AT THIS TIME. NO RESPIRATORY DISTRESS NOTED. BREATHING IS UNLABORED. PT IS ON 13L O2 NRB. IV IS SALINE LOCKED. WILL CONTINUE TO MONITOR.
--- NOTE | 2020-05-09 23:00 | NUR ---
ROUNDED ON PT. SHE IS AWAKE IN THE BED. PT IS STABLE AT THIS TIME. BED IS IN THE LOWEST POSITION AND CALL LIGHT IS WITHIN REACH. PT STATES SHE IS OKAY.
--- NOTE | 2020-05-10 01:38 | NUR ---
PT IS ASLEEP. NO RESPIRATORY DISTRESS NOTED. BREATHING IS UNLABORED. CHEST RISE AND FALL IS SYMMETRICAL. BED IS IN THE LOWEST POSITION AND IV IS SALINE LOCKED.
--- NOTE | 2020-05-10 03:34 | NUR ---
PT IS SLEEPING. NO DISTRESS OR PAIN NOTED. NO SOB. PT IS STABLE.
[2020-05-10 04:00] VITALS: BP 121/71
--- NOTE | 2020-05-10 05:30 | NUR ---
PT IS ALERT AND AWAKE. PT WAS GIVEN SNACKS AND JUICE REQUESTED. PT WAS ALSO GIVEN ANOTHER BLANKET. PT STATES SHE HAS BEEN HAVING SOME SOB BUT NOT CURRENTLY. O2 SAT IS 93% ON 13L O2 NRB. WILL CONTINUE TO MONITOR.
--- NOTE | 2020-05-10 07:15 | NUR ---
ENDORSED PT TO DAY SHIFT NURSE FOR CONTINUITY OF CARE. PT IS STABLE AT THIS TIME. PLAN OF CARE DISCUSSED.
[2020-05-10 08:00] VITALS: BP 132/58
[2020-05-10 08:34] LABS: BASOPHILS % (AUTO) 0.2 % (0.0-2.0); EOSINOPHILS # (AUTO) 0.1 K/uL (0-0.4); EOSINOPHILS % (AUTO) 0.7 % (0.0-4.0); HEMATOCRIT 38.2 % (36-48); HEMOGLOBIN 12.7 g/dL (12.0-16.0); LYMPHOCYTES % (AUTO) 14.2 % (20.5-51.1); MEAN CORPUSCULAR HEMOGLOBIN 26 pg (27-31); MEAN CORPUSCULAR HGB CONC 33 g/dL (33-37); MEAN CORPUSCULAR VOLUME 77.8 fL (80-94); MONOCYTES # (AUTO) 1.2 K/uL (0.8-1.0); NEUTROPHILS # (AUTO) 10.5 K/uL (1.8-7.7); NEUTROPHILS % (AUTO) 75.9 % (42.2-75.2); PLATELET COUNT (AUTO) 418 K/uL (140-450); RED BLOOD CELL COUNT(AUTO) 4.91 MIL/uL (4.20-5.40); RED CELL DISTRIBUTION WIDTH 13.7 % (11.6-13.7); WHITE BLOOD COUNT (AUTO) 13.8 K/uL (4.8-10.8)
[2020-05-10 09:09] LABS: ALBUMIN 2.8 g/dL (3.4-5.0); ANION GAP 15.1 (8-16); CARBON DIOXIDE 25.5 mmol/L (21-32); CREATININE 0.6 mg/dL (0.6-1.3); POTASSIUM 3.6 mmol/L (3.5-5.1); TOTAL BILIRUBIN 0.4 mg/dL (0.0-1.0)
[2020-05-10] MEDS: MONTELUKAST SODIUM 10 MG TAB PO SCH (09:13)
[2020-05-10] MEDS: DEXAMETHASONE 4 MG/ML VIAL IM SCH (09:13)
--- NOTE | 2020-05-10 14:00 | NUR ---
Pt ambulates to restroom with steady gait. SaO2 decreases to 85% with minimal exertion. No dyspnea at rest. Respirations even & nonlabored on O2 @ 12Lpm via NRB mask.
[2020-05-10 16:00] VITALS: BP 132/60
[2020-05-10] MEDS: REMDESIVIR (EUA) 100 MG in NACL 0.9% 100 ML IV SCH (16:33)
--- NOTE | 2020-05-10 19:05 | NUR ---
RECD. RESTING IN BED, AWAKE, A/OX4. RESPIRATION EVEN AND UNLABORED. IV SALINE LOCK AT THE LEFT AC G20, PATENT AND INTACT. ON 02 OXIMIZER AT 10 LITERS, SATURATING 95% DESATURATES TO THE 80s WHEN OFF 02. ABLE TO AMBULATE TO THE BR WITHOUT ASSISTANCE. PLAN OF CARE FOR THE SHIFT DISCUSSED WITH DAYSI RODRIGUEZ TO THE PATIENT. VERBALIZED UNDERSTANDING. DENIES PAIN 0/10.
[2020-05-10 20:00] VITALS: BP 126/60
--- NOTE | 2020-05-10 21:34 | NUR ---
DUE MEDICATION GIVEN, NO SOB NOTED.
--- NOTE | 2020-05-11 | NUR ---
SLEEPING COMFORTABLY IN BED.
--- NOTE | 2020-05-11 03:00 | NUR ---
LAYING ON HER RIGHT SIDE, 02 SAT - 92%, NO SOB NOTED.
--- NOTE | 2020-05-11 06:00 | NUR ---
ABLE TO SLEEP WELL. NO SOB NOTED DURING THE NIGHT.
--- NOTE | 2020-05-11 07:00 | NUR ---
CONDITION REMAIN STABLE. WILL ENDORSE TO AM SHIFT NURSE FOR CONTINUITY OF CARE.
--- NOTE | 2020-05-11 07:20 | NUR ---
REC'D REPORT FROM TANK TERMINAL GAUGER NURSE. PT ON 12L NRB. STABLE, CALL LIGHT WITHIN REACH
[2020-05-11 08:00] VITALS: BP 92/66
--- NOTE | 2020-05-11 09:10 | NUR ---
ADMINISTERED MEDICATIONS PER MD ORDER, PT TOLERATED PROCEDURE WELL. PT STABLE ON 6L OXYMIZER, A/Ox4. S1 S2, LUNGS CLEAR UPON AUSCULTATION. BED LOWEST POSITION. PT COMFORTABLE.
[2020-05-11] MEDS: DEXAMETHASONE 4 MG/ML VIAL IM SCH (09:45)
[2020-05-11] MEDS: MONTELUKAST SODIUM 10 MG TAB PO SCH (09:47)
--- NOTE | 2020-05-11 10:00 | NUR ---
ADMINISTERED MEDICATIONS PER MD ORDER, PT TOLERATED PROCEDURE WELL
[2020-05-11 10:16] LABS: ALBUMIN 2.9 g/dL (3.4-5.0); BILIRUBIN,DIRECT 0.1 mg/dL (0.0-0.3); TOTAL BILIRUBIN 0.5 mg/dL (0.0-1.0)
[2020-05-11] MEDS: ALBUTEROL SULFATE/IPRATROPIU 3 ML SOL IH SCH ×3 (10:38→19:00)
[2020-05-11] MEDS: BUDESONIDE 0.5 MG/2 ML NEBU INH SCH ×2 (10:38→19:30)
--- NOTE | 2020-05-11 10:38 | NUR ---
PATIENT AMBULATED TO SINK FOR PHYSICAL/ORAL HYGIENE SUPPLEMENTAL OXYGEN AT 15LPM VIA NON REBREATHER OFF FACE "HANGING AROUND NECK" PATIENT PRESENTING WITH INCREASED SOB 32-36 BPM PATIENT PLACED NON REBREATHER ON AMBULATED BACK TO BED HHN THERAPY GIVEN AT THIS TIME SATURATION PRE HHN THERAPY 95%
--- NOTE | 2020-05-11 10:50 | NUR ---
POST HHN THERAPY CHANGED OXYGEN DEVICE TO OXYMIZER STARTING AT 12 LPM SPONGE PACKER TO TITRATE FIO2
--- NOTE | 2020-05-11 10:58 | NUR ---
SUPPLEMENTAL OXYGEN AT 7 LPM VIA OXYMIZER SATURATION 93%-94% TISHA/RN NOTIFIED
--- NOTE | 2020-05-11 11:10 | NUR ---
SPOKE TO RESP. THERAPIST, CHANGED OXYGEN THERAPY TO 7L OXIMIZER, CURRENTLY SATURATION OF 94%
--- NOTE | 2020-05-11 13:20 | NUR ---
PT STABLE, HAVING LUNCH, DOES NOT COMPLAIN OF SOB, OR PAIN AT THIS TIME
[2020-05-11 16:00] VITALS: BP 112/49
[2020-05-11] MEDS: REMDESIVIR (EUA) 100 MG in NACL 0.9% 100 ML IV SCH (17:00)
--- NOTE | 2020-05-11 18:02 | NUR ---
ADMINISTERED REMDESIVIR PER MD ORDER. IV SITE PATENT, FLUSHING. PT TOLERATED PROCEDURE WELL
--- NOTE | 2020-05-11 19:35 | NUR ---
ENDORSED PT TO FACILITY MANAGER NURSE, PT STABLE. CALL LIGHT WITHIN REACH.
--- NOTE | 2020-05-11 19:35 | NUR ---
RECEIVED PT AAOX4 , NID - O2 SAT WNL . ON OXYMIZER AT 7LPM . IV SITE INTACT AND PATENT . SAFETY MEASURES IN PLACE . WILL CONT. TO MONITOR
[2020-05-12] VITALS: BP 110/70
--- NOTE | 2020-05-12 | NUR ---
O2 SAT WNL , NOP S/SX OF DISTRESS NOTED
--- NOTE | 2020-05-12 04:00 | NUR ---
MADE ROUNDS , NO S/SX OF ACUTE DISTRESS NOTED - O2 SAT WNL
--- NOTE | 2020-05-12 06:00 | NUR ---
NO COMPLAIN MADE .
--- NOTE | 2020-05-12 07:24 | NUR ---
I AND THE AM NURSE VISITED THE PT PRIOR THE ENDORSEMENT PT AWAKE
--- NOTE | 2020-05-12 07:25 | NUR ---
REC'D REPORT FROM PALLET ASSEMBLER NURSE, PT A/Ox4, 7L OXIMIZER. 20G. L.AC SL. SKIN INTACT, PT RESTING COMFORTABLY
--- NOTE | 2020-05-12 07:25 | NUR ---
ENDORSE - PT - STABLE
[2020-05-12 08:00] VITALS: BP 114/60
[2020-05-12 08:26] LABS: BASOPHILS % (AUTO) 0.1 % (0.0-2.0); EOSINOPHILS % (AUTO) 0.4 % (0.0-4.0); HEMOGLOBIN 12.7 g/dL (12.0-16.0); LYMPHOCYTES # (AUTO) 1.6 K/uL (2.5-16.5); LYMPHOCYTES % (AUTO) 11.9 % (20.5-51.1); MEAN CORPUSCULAR HEMOGLOBIN 26 pg (27-31); MEAN CORPUSCULAR HGB CONC 33 g/dL (33-37); MEAN CORPUSCULAR VOLUME 77.6 fL (80-94); MONOCYTES # (AUTO) 1.1 K/uL (0.8-1.0); MONOCYTES % (AUTO) 8.1 % (1.7-9.3); NEUTROPHILS # (AUTO) 10.7 K/uL (1.8-7.7); NEUTROPHILS % (AUTO) 79.5 % (42.2-75.2); PLATELET COUNT (AUTO) 474 K/uL (140-450); RED CELL DISTRIBUTION WIDTH 13.5 % (11.6-13.7); WHITE BLOOD COUNT (AUTO) 13.5 K/uL (4.8-10.8)
[2020-05-12 09:39] LABS: ANION GAP 14.8 (8-16); CARBON DIOXIDE 25.4 mmol/L (21-32); CREATININE 0.7 mg/dL (0.6-1.3); POTASSIUM 4.2 mmol/L (3.5-5.1)
[2020-05-12] MEDS: DEXAMETHASONE 4 MG/ML VIAL IM SCH (09:55)
[2020-05-12] MEDS: MONTELUKAST SODIUM 10 MG TAB PO SCH (09:55)
[2020-05-12] MEDS: ALBUTEROL SULFATE/IPRATROPIU 3 ML SOL IH SCH ×2 (13:00→19:00)
--- NOTE | 2020-05-12 14:49 | NUR ---
CHANGED IV SITE DRESSING, HAD DRIED BLOOD. IV LINE INTACT, REINFORCED WITH TRANSPARENT DRESSING, SURGICAL TAPE. PT TOLERATED PROCEDURE WELL
[2020-05-12 16:00] VITALS: BP 127/50
--- NOTE | 2020-05-12 19:28 | NUR ---
ENDORSED PT TO KINESIOLOGY INTERNSHIP NURSE, PT STABLE. CALL LIGHT WITHIN REACH
[2020-05-12] MEDS: BUDESONIDE 0.5 MG/2 ML NEBU INH SCH (19:30)
--- NOTE | 2020-05-13 | NUR ---
MADE ROUNDS , NO S/SX OF ACUTE DISTRESS NOTED
[2020-05-13] MEDS: ALBUTEROL SULFATE/IPRATROPIU 3 ML SOL IH SCH ×4 (01:00→19:00)
[2020-05-13 04:00] VITALS: BP 122/70
--- NOTE | 2020-05-13 04:00 | NUR ---
O2 SAT WNL . NO S/SX OF ACUTE DISTRESS
--- NOTE | 2020-05-13 06:00 | NUR ---
NO COMPLAIN MADE
[2020-05-13] MEDS: BUDESONIDE 0.5 MG/2 ML NEBU INH SCH ×2 (07:30→19:30)
--- NOTE | 2020-05-13 07:40 | NUR ---
ENDORSE - PT - STABLE
[2020-05-13 08:00] VITALS: BP 128/51
[2020-05-13 09:36] LABS: ANION GAP 12.6 (8-16); CARBON DIOXIDE 27.6 mmol/L (21-32); CREATININE 0.8 mg/dL (0.6-1.3); POTASSIUM 4.2 mmol/L (3.5-5.1)
[2020-05-13] MEDS: MONTELUKAST SODIUM 10 MG TAB PO SCH (09:36)
[2020-05-13] MEDS: DEXAMETHASONE 4 MG/ML VIAL IM SCH (09:38)
--- NOTE | 2020-05-13 09:44 | NUR ---
ADMINISTERED SCHEDULED MEDICATION, MEDICATION EDUCATION PROVIDED. PT IS STABLE, WILL CONTINUE TO MONITOR.
--- NOTE | 2020-05-13 11:38 | NUR ---
RECEIVED TORB FROM DR STONE TO D/C HEPARIN AND START PT ON ELIQUIS 2.5MG PO BID FIRST DOSE NOW. WILL INPUT ORDER AND CARRY IT OUT.
--- NOTE | 2020-05-13 11:48 | NUR ---
RECEIVED VERBAL ORDER FROM DR STONE TO CHANGE DECADRON TO PO 4MG DAILY, WILL INPUT ORDER
[2020-05-13] MEDS ORDERED: APIXABAN 2.5 MG TAB PO SCH (12:00)
--- NOTE | 2020-05-13 12:57 | NUR ---
ADMINISTERED SCHEDULED MEDICATION, MEDICATION EDUCATION PROVIDED. PT VERBALIZED UNDERSTANDING, PT TOLERATED WELL. PT IS STABLE, WILL CONTINUE TO MONITOR
[2020-05-13] MEDS ORDERED: DEC4 PO (14:52)
[2020-05-13] MEDS ORDERED: APIX2.5 PO (14:52)
--- NOTE | 2020-05-13 15:05 | NUR ---
05/13/20 RD FOLLOW UP COMPLETED PLEASE REFER TO NUTRITION ASSESSMENT UNDER CARE ACTIVITY FOR ESTIMATED NUTRITIONAL NEEDS. 1. CONTINUE REGULAR DIET TOLERATED 2. CONTINUE ENSURE BID 3. ENCOURAGE PO INTAKE >75% 4. RD TO FOLLOW-UP 3-5 DAYS, MODERATE RISK GRADY CAPONE, CHANTAL
[2020-05-13 16:00] VITALS: BP 123/49
--- NOTE | 2020-05-13 22:06 | NUR ---
[facility] CALLED AND STATED THAT THE HOME O2 CANT BE DELIVERED TONIGHT DUE TO LACK OF EQUIPMENT AVAILABILITY, ZUHAIR TAVAREZ MADE AWARE.
[2020-05-13] MEDS: APIXABAN 2.5 MG TAB PO SCH (22:55)
--- NOTE | 2020-05-14 | NUR ---
MADE ROUNDS , NO S/SX OF ACUTE DISTRESS
[2020-05-14] MEDS: ALBUTEROL SULFATE/IPRATROPIU 3 ML SOL IH SCH ×3 (01:00→13:00)
[2020-05-14 04:00] VITALS: BP 110/60
--- NOTE | 2020-05-14 04:00 | NUR ---
O2 SAT WNL , NO S/ SX OF ACUTE DISTRESS
--- NOTE | 2020-05-14 06:00 | NUR ---
NO COMPLAIN MADE
--- NOTE | 2020-05-14 07:26 | NUR ---
RECEIVED REPORT FROM NIGHT NURSE FOR CONTINUITY OF CARE, PT IS STABLE. PT ON 7L OXIMIZER. PT HAS LAC 20G SALINE LOCK. SKIN INTACT. SAFETY MEASURES IN PLACE, WILL CONTINUE TO MONITOR
--- NOTE | 2020-05-14 07:26 | NUR ---
ENDORSE - PT - STABLE
[2020-05-14] MEDS: BUDESONIDE 0.5 MG/2 ML NEBU INH SCH (07:30)
[2020-05-14 08:00] VITALS: BP 116/63
[2020-05-14] MEDS: MONTELUKAST SODIUM 10 MG TAB PO SCH (08:17)
[2020-05-14] MEDS: APIXABAN 2.5 MG TAB PO SCH (08:17)
--- NOTE | 2020-05-14 08:22 | NUR ---
ADMINISTERED SCHEDULED MEDICATION, MEDICATION EDUCATION PROVIDED. PT TOLERATED WELL. PT IS STABLE, WILL CONTINUE TO MONITOR.
[2020-05-14] MEDS ORDERED: DEXAMETHASONE 4 MG TAB PO SCH (09:00)
[2020-05-14 09:37] LABS: ANION GAP 12.2 (8-16); CARBON DIOXIDE 26.8 mmol/L (21-32); CREATININE 0.7 mg/dL (0.6-1.3)
--- NOTE | 2020-05-14 11:00 | NUR ---
ROUNDING ON PT, PT IS STABLE, WILL CONTINUE TO MONITOR
--- NOTE | 2020-05-14 14:20 | NUR ---
DECREASE PT OXYGEN TO 5L OXIMIZER, PT IS STABLE, PT IS TOLERATING WELL. PT IS STABLE
--- NOTE | 2020-05-14 16:45 | NUR ---
PT PROVIDED WITH DISCHARGE INSTRUCTIONS, PT VERBALIZED UNDERSTANDING, PT DISCHARGE HOME. PT IS STABLE. PNA AND FLU UP TO DATE
== END 2020-05-14 16:45 | disposition home or self-care (01) | DRG 177 ==
LOC: MED 16:38 → MMU 20:47 → MTU 05-06 10:46
PROVIDERS: ADMIT Hospitalist; ATTEND Hospitalist
PROC: XW13325 Transfusion of Convalescent Plasma (Nonautologous) into Peripheral Vein, Percutaneous Approach, New Technology Group 5 (ICD-10-PCS; 2020-05-08)
PROC: XW033E5 Introduction of Remdesivir Anti-infective into Peripheral Vein, Percutaneous Approach, New Technology Group 5 (ICD-10-PCS; principal; 2020-05-11)
DX: U07.1 COVID-19 (principal); J96.01 Acute respiratory failure with hypoxia; J12.89 Other viral pneumonia; E11.9 Type 2 diabetes mellitus without complications; E78.5 Hyperlipidemia, unspecified; I10 Essential (primary) hypertension; J45.909 Unspecified asthma, uncomplicated; R77.8 Other specified abnormalities of plasma proteins; E66.9 Obesity, unspecified; Z68.33 Body mass index [BMI] 33.0-33.9, adult
CPT/HCPCS: 36415; 71045; 80048; 80053; 80076; 81003; 82550; 82728; 83036; 83605; 83615; 83880; 84484; 85025; 85379; 85384; 85610; 85730; 86140; 86900; 86901; 87040; 87081; 87086; 93005; 94640; 96374; 96375; 99291; J0456; J0696; J1100; J1644; J7060; J7626; P9017; U0003